=== PATIENT | male | born 1980 | race Caucasian/White ===

== ENCOUNTER 2023-09-06 23:10 | Inpatient (IN) | payer SELFPAY ==
[~2023-09-06] VITALS: Ht 177.8 cm; Wt 115.7 kg
[2023-09-07] MEDS: LEVETIRACETAM 1000MG PREMIX 100 ML IV ONE
[2023-09-07] MEDS: SODIUM CHLORIDE 0.9% 1,000 ML IV ONE
[2023-09-07 00:24] LABS: BASOPHILS % 0.6 % (0.0-2.0); EOSINOPHILS % 2.8 % (0.0-5.0); HEMATOCRIT. 41.8 % (42.0-52.0); HEMOGLOBIN. 14.5 g/dL (14.0-18.0); LYMPHOCYTES % 33.1 % (20.0-50.0); MEAN CORPUSCULAR HEMOGLOBIN 33.7 pg (28.0-32.0); MEAN CORPUSCULAR HGB CONC 34.8 g/dL (31.0-37.0); MEAN PLATELET VOLUME 9.4 fl (7.4-10.4); MONOCYTES % 13.2 % (2.0-8.0); NEUTROPHILS % 50.3 % (40.0-76.0); PLATELET 248 x1000/uL (130-400); RED BLOOD CELL COUNT 4.31 mill/uL (4.7-6.1); RED CELL DISTRIBUTION WIDTH 13.7 % (11.6-14.6); WHITE BLOOD COUNT 10.1 x1000/uL (4.5-11.0)
[2023-09-07 00:28] LABS: CHLORIDE 108 mEq/L (98-107); POTASSIUM 3.4 mEq/L (3.5-5.1); SODIUM 141 mEq/L (136-145)
[2023-09-07 00:29] LABS: CARBON DIOXIDE 28 mEq/L (21-32)
[2023-09-07 00:34] LABS: CREATININE 0.9 mg/dL (0.6-1.3); GLUCOSE 96 mg/dL (70-105)
[2023-09-07 00:35] LABS: TROPONIN I HIGH SENSITIVITY 4 ng/L (3.0-53); UREA NITROGEN BLOOD 14 mg/dL (9-23)
[2023-09-07 00:36] LABS: ALANINE AMINOTRANSFERASE 36 IU/L (10-49); ALBUMIN 4.5 g/dL (3.2-4.8); ASPARTATE AMINOTRANSFERASE 30 IU/L (<34); ETHANOL BLOOD < 10 mg/dL (<10)
[2023-09-07 00:37] LABS: BILIRUBIN TOTAL 0.4 mg/dL (0.1-1.0); PROTEIN TOTAL 7.2 g/dL (6.0-8.3)
[2023-09-07 02:24] LABS: TROPONIN I HIGH SENSITIVITY 4 ng/L (3.0-53)
[2023-09-07] MEDS ORDERED: ACETAMINOPHEN 325MG TABLET PO PRN ×2 (02:45)
[2023-09-07] MEDS ORDERED: CLONIDINE 0.1MG TABLET PO PRN (02:45)
[2023-09-07] MEDS ORDERED: MAGNESIUM/ALUMINUM HYDROXIDE/SIMETHICONE 30ML UDC PO PRN (02:45)
[2023-09-07] MEDS ORDERED: ZOLPIDEM TARTRATE 5MG TABLET PO PRN (02:45)
[2023-09-07] MEDS ORDERED: ONDANSETRON HCL 4MG/2ML INJ IV PRN (02:45)
[2023-09-07 05:30] VITALS: BP 104/72; PULSE 77; RESP 18; TEMP 97.3
[2023-09-07] MEDS: SODIUM CHLORIDE 0.9% INJ 3ML FLUSH IVF SCH (06:00)
[2023-09-07 08:00] VITALS: BP 100/59; PULSE 70; RESP 18; TEMP 97.2
[2023-09-07] MEDS ORDERED: LEVETIRACETAM 500MG PREMIX 100 ML IV SCH (09:00)
[2023-09-07] MEDS: LEVETIRACETAM 500MG PREMIX 100 ML IV SCH (10:26)
[2023-09-07 12:00] VITALS: BP 98/63; PULSE 63; RESP 20; TEMP 97
[2023-09-07 16:00] VITALS: BP 101/58; PULSE 68; RESP 18; TEMP 97.4
[2023-09-07] MEDS: POTASSIUM CHLORIDE 20MEQ TABLET SR PO NR (19:51)
[2023-09-07 20:00] VITALS: BP 110/72; PULSE 61; RESP 20; TEMP 97.5
[2023-09-08] VITALS: BP 101/57; PULSE 52; RESP 22; TEMP 97.3
[2023-09-08 04:00] VITALS: BP 116/72; PULSE 52; RESP 20; TEMP 97.4
[2023-09-08 08:00] VITALS: BP 125/86; PULSE 60; RESP 18; TEMP 98
[2023-09-08 12:00] VITALS: BP 101/60; PULSE 57; RESP 20; TEMP 98.1
[2023-09-08 14:48] VITALS: BP 129/89; PULSE 78; TEMP 98; O2SAT 98
== END 2023-09-08 15:30 | disposition home or self-care (01) | DRG 48 ==
LOC: EDBD 23:10 → ER 23:10 → 8WST 09-07 02:43
PROVIDERS: ADMIT Internal Medicine; ATTEND Internal Medicine
PROC: 4A00X4Z Measurement of Central Nervous Electrical Activity, External Approach (ICD-10-PCS; principal; 2023-09-08)
DX: G90.8 Other disorders of autonomic nervous system (principal); E66.9 Obesity, unspecified; F17.210 Nicotine dependence, cigarettes, uncomplicated; Z68.36 Body mass index [BMI] 36.0-36.9, adult; Z79.899 Other long term (current) drug therapy
CPT/HCPCS: 36415; 71045; 80053; 80320; 82962; 83605; 84484; 85025; 93005; 99285; J1953; J7030; G0480